=== PATIENT | male | born 1980 | race Caucasian/White ===

== ENCOUNTER 2018-05-06 22:50 | Inpatient (IN) ==
[2018-05-06] MEDS ORDERED: Nicotine 2 MG GUM BC PRN (23:17)
[2018-05-07] MEDS ORDERED: Ondansetron 4 MG/2 ML VIAL IVP PRN (00:24)
[2018-05-07] MEDS ORDERED: *HR* Propranolol 1 MG/ML VIAL IVP ONE (00:25)
[2018-05-07] MEDS: *HR* OxyCODONE Immed Rel 5 MG TABLET PO PRN ×3 (00:37→18:05)
[2018-05-07] MEDS ORDERED: Melatonin 3 MG TABLET PO ONE (02:45)
[2018-05-07 05:13] LABS: Basophils # 0.1 K/mcL (0.0-0.2); Basophils % 0.8 %; Eosinophils # 0.3 K/mcL (0.0-0.6); Eosinophils % 1.9 %; Hematocrit 43.9 % (37.5-50.1); Lymphocytes # 3.5 K/mcL (0.6-4.6); Lymphocytes % 22.6 %; Mean Corpuscular HGB Conc 34.2 g/dL (31.6-35.5); Mean Corpuscular Hemoglobin 31.9 pg (28.0-33.3); Mean Corpuscular Volume 93.4 fL (83.0-100.0); Mean Platelet Volume 10.6 fL (9.4-12.4); Monocytes # 1.2 K/mcL (0.0-1.3); Monocytes % 7.5 %; Neutrophils # 10.3 K/mcL (1.6-8.9); Platelet Count 368 K/mcL (140-400); Red Cell Distribution Width 12.8 % (11.5-14.5); Segmented Neutrophils % 66.2 %
[2018-05-07 05:48] LABS: BUN/Creatinine Ratio 22 (6-26); Blood Urea Nitrogen 14 mg/dL (6-20); Calcium 9.5 mg/dL (8.6-10.3); Carbon Dioxide 22 mEq/L (23-29); Chloride 107 mEq/L (98-107); Glucose 93 mg/dL (70-105); Osmolality,Calculated 288 (280-300); Potassium 3.7 mEq/L (3.5-5.1); Sodium 139 mEq/L (136-145); eGFR For Non-African Americans > 60 (> 60)
[2018-05-07] MEDS: cefTRIAXone 2,000 MG in Water for inj. (sterile) 20 ML 20 ML IVPB SCH ×2 (05:57→18:06)
[2018-05-07] MEDS ORDERED: amLODIPine 5 MG TABLET PO SCH ×2 (09:00→19:18)
[2018-05-07] MEDS: Gabapentin 400 MG CAPSULE PO SCH ×4 (09:39→21:53)
[2018-05-07] MEDS: Lisinopril 20 MG TABLET PO SCH (09:40)
[2018-05-07] MEDS: tiZANidine 4 MG TABLET PO SCH ×3 (09:45→21:53)
--- NOTE | 2018-05-07 19:16 | Internal Med History&Physical ---
Date of Encounter: 05/07/18 Time of Encounter: 18:40 Assessment and Plan (1) Meningitis Current visit: Yes Status: Suspected Suspected but not proven. Continue empiric IV antibiotics to complete 2 week course ending 05/13/2018. Add lactobacillus. (2) Hypertension Current visit: Yes Status: Chronic Continue lisinopril. Decrease Norvasc and start low-dose Toprol to lessen borderline tachycardia. Qualifiers: Hypertension type: essential hypertension Qualified Code(s): I10 - Essential (primary) hypertension (3) PTSD (post-traumatic stress disorder) Current visit: Yes Status: Acute Continue Seroquel (4) Anxiety Current visit: Yes Status: Acute Continue Seroquel Internal Medicine - H&P: HPI Chief complaint: Possible meningitis Admitted From: Hospital to Hospital Transfer Plans for Post Hospital Care: Home History of present illness: Mr. Woodward is a 38 year old male who was transferred to [facility] swing bed after an April 30 stay at [facility] for possible meningitis. He had been transferred to [facility] from [facility] after presenting there with concern for sepsis with back pain and headache. Lumbar puncture was not performed due to confirmed Chiari malformation. He was seen at [facility] by neurology, neurosurgery, and infectious disease. It was recommended he he complete a 2 week course of antibiotics as empiric treatment for meningitis. A PICC line was placed and he was discharged to [facility] swing bed to continue IV antibiotics through 05/13/2018. Neurologic history is negative for large distribution strokes or seizures otherwise. Past Med Surg Social Fam HX - Past Medical History Medical history: asthma, hypertension Additional medical history: Chiari malformation type 1 Psychiatric history: no psych history - Past Surgical History Additional surgical history: R. wrist, R. hand, R. Elbow, R. knee Sx - Social History Smoking Status: Current every day smoker Packs per day: 0.25 Smokeless Tobacco Status: No Alcohol use: rarely Drug use: none Additional social history: History of IV drug use. - Family History Father Living Status: Age at : 46 Hx Family Cancer: Yes (Colon Ca) Internal Medicine - H&P: Meds Gabapentin [Neurontin] 800 mg PO QID 11/29/16 [History] Quetiapine Fumarate [Seroquel] 100 mg PO TID 11/29/16 [History] Tizanidine HCl [Zanaflex] 4 mg PO TID 11/29/16 [History] predniSONE [PredniSONE] 20 mg PO BID 5 Days tablet 11/29/16 [Rx] 3 Allergy/AdvReac Type Severity Reaction Status Date / Time No Known Allergies Allergy Verified 11/29/16 12:38 All Systems PM: A 10-system review of systems was performed and is negative for pertinent findings except as documented above in the HPI. Review of systems: Gen.: He states his weight has been stable the past 2 months Cardiovascular: He has history of hypertension but denies HI heart failure angina DVT or pulmonary embolus Respiratory: He smoked from age [age] but denies chronic lung disease other than occasional asthma. GI: He has untreated hepatitis C. He took hepatitis B vaccination with confirmed immune response on labs at [facility]. He denies other disorders of his liver gallbladder or exocrine pancreas : He has history of kidney stones in the past that are asymptomatic. He denies other kidney or bladder disorders. Neurologic: As per history of present illness Endocrine: He denies diabetes thyroid disease or hyperlipidemia Hematology/oncology: Denies blood disorders cancers or anemia Psychiatric: He has history of anxiety and PTSD. He denies other mental health diagnoses. [place] skeletal: He has had right elbow surgery, right knee surgery, and right carpal tunnel surgery. - Constitutional Vitals: Temp Pulse Resp BP Pulse Ox 98.6 F 107 17 105/69 97 05/07/18 15:36 05/07/18 15:36 05/07/18 15:36 05/07/18 15:36 05/07/18 15:36 Exam: Gen.: He is a well-developed well-nourished male resting comfortably in bed who appears in no acute distress at present time HEENT: Head is atraumatic and normocephalic. Eyes: EOMI. There is no scleral icterus. Mouth: His teeth are in poor repair. Mucosa is moist. Neck: There is no thyromegaly or adenopathy noted. Heart: Regular without murmurs gallops or ectopics Lungs: No wheezes or crackles are heard. Abdomen: Soft and nontender. No masses or guarding are noted. Extremities: There is no cyanosis edema or clubbing noted. Dorsalis pedis and posttibial pulses are trace palpable bilaterally. Neurologic: Mental status: He is talkative and a good historian. Cranial nerves : Smile is symmetric. Forehead wrinkles bilaterally. Tongue protrudes midline. EOMI. Motor: There is no pronator drift. Cerebellar: Finger to nose is intact bilaterally. Skin: Warm and dry Internal Med - H&P Results - Labs CBC & Chem 7: 05/07/18 03:45 05/07/18 03:45 Labs: Short CBC 05/07/18 Range/Units 03:45 WBC 15.6 H (4.3-11.1) K/mcL Hgb 15.0 (12.9-16.9) g/dL Hct 43.9 (37.5-50.1) % Plt Count 368 (140-400) K/mcL Neutrophils # 10.3 H (1.6-8.9) K/mcL BMP 05/07/18 03:45 Sodium 139 Potassium 3.7 Chloride 107 Carbon Dioxide 22 L BUN 14 Creatinine 0.63 L Glucose 93 Calcium 9.5
[2018-05-07] MEDS: Lactobacillus 1 EACH CAP.SPRINK PO SCH (21:53)
[2018-05-07] MEDS: Melatonin 3 MG TABLET PO SCH (21:53)
[2018-05-07] MEDS: Acetaminophen 325 MG TABLET PO PRN (21:54)
[2018-05-08] MEDS: *HR* OxyCODONE Immed Rel 5 MG TABLET PO PRN ×3 (04:28→23:04)
[2018-05-08] MEDS: cefTRIAXone 2,000 MG in Water for inj. (sterile) 20 ML 20 ML IVPB SCH ×2 (06:19→17:53)
[2018-05-08 06:50] LABS: Basophils # 0.1 K/mcL (0.0-0.2); Basophils % 0.7 %; Eosinophils # 0.5 K/mcL (0.0-0.6); Eosinophils % 3.8 %; Hematocrit 38.9 % (37.5-50.1); Immature Granulocytes % 1.1 % (0-4); Lymphocytes % 29.5 %; Mean Corpuscular HGB Conc 33.4 g/dL (31.6-35.5); Mean Corpuscular Hemoglobin 32.2 pg (28.0-33.3); Mean Corpuscular Volume 96.3 fL (83.0-100.0); Mean Platelet Volume 10.2 fL (9.4-12.4); Monocytes # 1.8 K/mcL (0.0-1.3); Monocytes % 13.8 %; Platelet Count 219 K/mcL (140-400); Red Blood Count 4.04 M/mcL (4.19-5.50); Red Cell Distribution Width 13.2 % (11.5-14.5); Segmented Neutrophils % 51.1 %
[2018-05-08 07:04] LABS: Lymphocytes # 3.8 K/mcL (0.6-4.6); Neutrophils # 6.6 K/mcL (1.6-8.9)
[2018-05-08 07:12] LABS: Albumin 3.2 g/dL (3.5-5.7); Albumin/Globulin Ratio 1.1 (1.1-2.2); Bilirubin,Total 0.3 mg/dL (0.3-1.0); Calcium 8.2 mg/dL (8.6-10.3); Globulin 2.8 g/dL (2.4-3.5); Potassium 3.5 mEq/L (3.5-5.1)
[2018-05-08 07:30] LABS: Thyroid Stimulating Hormone 1.112 mcIU/mL (0.340-5.600)
[2018-05-08] MEDS ORDERED: Aminoglycoside Consult 1 EACH MC ONE (09:00)
[2018-05-08] MEDS ORDERED: Metoprolol XL (24 HR) Succ 25 MG TAB.ER.24H PO SCH (09:00)
[2018-05-08] MEDS: Lisinopril 20 MG TABLET PO SCH (09:37)
[2018-05-08] MEDS: tiZANidine 4 MG TABLET PO SCH ×3 (09:37→21:44)
[2018-05-08] MEDS: Lactobacillus 1 EACH CAP.SPRINK PO SCH ×2 (09:37→21:45)
[2018-05-08] MEDS: Gabapentin 400 MG CAPSULE PO SCH ×4 (09:37→21:44)
--- NOTE | 2018-05-08 14:22 | Internal Med Progress Note ---
Date of Encounter: 05/08/18 Time of Encounter: 14:15 - Assessment and plan (1) Meningitis Current Visit: Yes Status: Suspected Assessment and plan: May 08. Suspected but not proven. Continue empiric IV antibiotics with probiotics to complete 2 week course ending 05/13/2018. (2) Hypertension Current Visit: Yes Status: Chronic Assessment and plan: May 08. Continue lisinopril, lower dose Norvasc, and Toprol XL. Qualifiers: Hypertension type: essential hypertension Qualified Code(s): I10 - Essential (primary) hypertension (3) PTSD (post-traumatic stress disorder) Current Visit: Yes Status: Acute Assessment and plan: May 08. Continue Seroquel (4) Anxiety Current Visit: Yes Status: Acute Assessment and plan: May 08. Continue Seroquel (5) Azotemia Current Visit: Yes Status: Acute Assessment and plan: May 08. Doubt creatinine change from yesterday to today accurate. Recheck labs in a.m. - Subjective Interval history: May 08. He has no new complaints. - Constitutional Vitals: Temp Pulse Resp BP Pulse Ox 97.6 F 69 15 111/72 100 05/08/18 06:29 05/08/18 06:29 05/08/18 06:29 05/08/18 06:29 05/08/18 06:29 Exam: He is resting comfortably in a chair at bedside and appears in no acute distress. His affect is bright and cheerful. I reviewed his medications and lab results. Internal Medicine: Result - Labs CBC & Chem 7: 05/08/18 06:10 05/08/18 06:10 Labs: Short CBC 05/08/18 Range/Units 06:10 WBC 13.0 H (4.3-11.1) K/mcL Hgb 13.0 D (12.9-16.9) g/dL Hct 38.9 (37.5-50.1) % Plt Count 219 (140-400) K/mcL Neutrophils # 6.6 (1.6-8.9) K/mcL BMP 05/08/18 06:10 Sodium 136 Potassium 3.5 Chloride 104 Carbon Dioxide 22 L BUN 25 H Creatinine 3.45 H Glucose 120 H Calcium 8.2 L Liver Function 05/08/18 Range/Units 06:10 Total Bilirubin 0.3 (0.3-1.0) mg/dL AST 24 (13-39) Units/L ALT 37 (7-52) Units/L Alkaline Phosphatase 80 (34-104) Units/L Albumin 3.2 L (3.5-5.7) g/dL Consult Discharge Plan - Plan Referrals: Michael Anne, FRANCISCA [Primary Care Provider] - 1 week
[2018-05-08] MEDS: Acetaminophen 325 MG TABLET PO PRN (14:43)
[2018-05-08 18:44] VITALS: BP 139/92
[2018-05-08 19:51] LABS: Calcium 8.6 mg/dL (8.6-10.3); Potassium 3.9 mEq/L (3.5-5.1)
[2018-05-08] MEDS: Melatonin 3 MG TABLET PO SCH (21:45)
--- NOTE | 2018-05-09 18:13 | Discharge Summary ---
Date of Encounter: 05/09/18 Time of Encounter: 18:07 - Discharge Diagnosis (1) Meningitis Priority: Primary Status: Suspected (2) Acute renal failure Priority: Secondary Status: Acute Qualifiers: Acute renal failure type: unspecified Qualified Code(s): N17.9 - Acute kidney failure, unspecified (3) Hypertension Priority: Secondary Status: Chronic Qualifiers: Hypertension type: essential hypertension Qualified Code(s): I10 - Essential (primary) hypertension (4) PTSD (post-traumatic stress disorder) Priority: Secondary Status: Acute (5) Anxiety Priority: Secondary Status: Acute Hospital course: Mr. Woodward is a 38 year old male who was transferred to [facility] swing bed after an April 30 stay at [facility] for possible meningitis. He had been transferred to [facility] from [facility] after presenting there with concern for sepsis with back pain and headache. Lumbar puncture was not performed due to confirmed Chiari malformation. He was seen at [facility] by neurology, neurosurgery, and infectious disease. It was recommended he he complete a 2 week course of antibiotics as empiric treatment for meningitis. A PICC line was placed and he was discharged to [facility] swing bed to continue IV antibiotics through 05/13/2018. Initial orders were written by the emergency room physician. I saw him on May 07 and performed a history and physical. He continued on IV Rocephin and vancomycin as per [facility] orders. He remained afebrile and vital signs were stable throughout his hospital course. He had an episode of vomiting and complained of back pain the afternoon of May 07 but the symptoms had resolved by the time I saw him May 08. Follow-up lab work May 08 showed creatinine increased to 3.45. I doubted the accuracy of this since creatinine had been normal at 0.63 the previous day and he was essentially asymptomatic. He complained to nursing staff he did not feel well the afternoon of May 08. Repeat labs showed further elevation of creatinine to 5.06. A stat CT of the abdomen/pelvis was ordered to further evaluate. No vascular or renal lesions were obvious. I contacted [facility] transfer center and arrangements were quickly completed for him to be transferred to [facility] emergency room for evaluation and ongoing care needs. - Time Spent with Patient Total time spent providing and/or coordinating discharge services: - Discharge Medications Home Medications: Gabapentin [Neurontin] 800 mg PO QID 11/29/16 [History] Quetiapine Fumarate [Seroquel] 100 mg PO TID 11/29/16 [History] Tizanidine HCl [Zanaflex] 4 mg PO TID 11/29/16 [History] predniSONE [PredniSONE] 20 mg PO BID 5 Days tablet 11/29/16 [Rx] Allergies/Adverse Reactions: 3 Allergy/AdvReac Type Severity Reaction Status Date / Time No Known Allergies Allergy Verified 11/29/16 12:38 Date of admission: 05/06/18 22:50 Primary care physician: Jannette Whitehead Consults: 05/06/18 23:31 Consult to Occupational Therapy [CONS] Routine Comment: OT to assess, develop, and implement Plan of Care Reason for Consult: OT to assess, develop, and implement Plan of Care Does patient have active BEDREST order?: No Is patient medically & hemodynamically stable?: Yes Consult to Physical Therapy [CONS] Routine Comment: PT to assess, develop, and implement Plan of Care Reason for Consult: PT to assess, develop, and implement Plan of Care Does patient have active BEDREST order?: No Is patient medically & hemodynamically stable?: Yes Consult to Nurse Care Manager [CONS] Routine Reason for SW Consult: New Swing bed admission - Constitutional Vitals: Temp Pulse Resp BP Pulse Ox 98.5 F 88 16 139/92 94 05/08/18 18:42 05/08/18 18:42 05/08/18 18:42 05/08/18 18:42 05/08/18 18:42 - Patient Status Disposition: Transfer Other Condition: Fair - Discharge Instructions Instructions: Chronic Hypertension (DC), Anxiety (DC)
== END 2018-05-08 23:50 | disposition other institution (70) | DRG 97 ==
LOC: INPPIK 22:50
PROVIDERS: ADMIT Internal Medicine; ATTEND Internal Medicine